=== PATIENT | female | born 1960 | race Caucasian/White ===

== ENCOUNTER 2018-03-23 13:20 | Outpatient (CLI) | payer OTHER ==
--- NOTE | 2018-03-23 14:04 | XRAY Report ---
Reason: COUGH,UNSPECIFIED ASTHMA,UNCOMP Procedure Date: 03/23/2018 Accession Number: [id number] / [id number] Procedure: XR - Chest 2 View X-Ray CPT Code: 73674 FULL RESULT: EXAM: CHEST RADIOGRAPHY EXAM DATE: 03/23/2018 01:30 PM. CLINICAL HISTORY: Cough, unspecified asthma, uncomplicated. COMPARISON: None. TECHNIQUE: 2 views. FINDINGS: Lungs/Pleura: No focal opacities evident. No pleural effusion. No pneumothorax. Normal volumes. Mediastinum: Heart and mediastinal contours are unremarkable. Other: None. IMPRESSION: Normal 2-view chest radiography. RADIA
== END 2018-03-23 13:21 | disposition home or self-care (01) ==
LOC: DI 13:20
PROVIDERS: ATTEND Internal Medicine
DX: R05 Cough (principal); J45.909 Unspecified asthma, uncomplicated; H69.80 Other specified disorders of Eustachian tube, unspecified ear
CPT/HCPCS: 71046

== ENCOUNTER 2020-08-28 09:00 | Outpatient (CLI) | payer OTHER ==
--- NOTE | 2020-08-28 10:15 | XRAY Report ---
PROCEDURE: Shoulder 3 View RT INDICATIONS: PAIN IN R SHLDR TECHNIQUE: 3 views of the shoulder were acquired. COMPARISON: None. FINDINGS: Bones: No fractures or dislocations. Mild undersurface spurring at the acromioclavicular joint. No suspicious bony lesions. Visualized ribs appear intact. Soft tissues: No suspicious soft tissue calcifications. IMPRESSION: Mild undersurface spurring at the acromioclavicular joint. Otherwise normal shoulder. Reviewed by: Shannan Rosario MD on 08/28/2020 9:14 AM ALEJANDRA Approved by: Shannan Rosario MD on 08/28/2020 9:14 AM ALEJANDRA Station ID: [id number]
== END 2020-08-28 09:01 | disposition home or self-care (01) ==
LOC: DI.S 09:00
PROVIDERS: ATTEND Nurse Practitioner Family
DX: M25.511 Pain in right shoulder (principal); M75.91 Shoulder lesion, unspecified, right shoulder

== ENCOUNTER 2020-09-20 14:17 | Outpatient (CLI) | payer OTHER ==
--- NOTE | 2020-09-21 12:04 | Mammography Report ---
BILATERAL DIGITAL SCREENING MAMMOGRAM 3D/2D: 09/20/2020 CLINICAL: Routine screening. No prior exams were available for comparison. There are scattered fibroglandular elements in both br easts. There are benign post operative findings in both breasts. No significant masses, calcifications, or other findings are seen in either breast. IMPRESSION: BENIGN There is no mammographic evidence of malignancy. A 1 year screening mammogram is recommended. This exam was interpreted at Station ID: [id number]. NOTE: For mammograms, a report in lay terms will be sent to the patient. Approximately 15% of breast malignancies will not be visualized mammographically. In the management of a palpable breast mass, a negative mammogram must not discourage biopsy of a clinically suspicious lesion. Electronically Signed By: Nino saldana/robert:09/20/2020 18:01:03 ACR BI-RADS Category 2: Benign Finding(s) 3342F PARENCHYMAL PATTERN: (A) - The breast(s) demonstrate(s) scattered fibroglandular densities. BI-RADS CATEGORY: (2) - 2 RECOMMENDATION: (ANNUAL) - Recommend routine annual screening mammography. [id number] 1 year screening LATERALITY: (B)
== END 2020-09-20 14:18 | disposition home or self-care (01) ==
LOC: DI 14:17
PROVIDERS: ATTEND Nurse Practitioner Family
DX: Z12.31 Encounter for screening mammogram for malignant neoplasm of breast (principal)

== ENCOUNTER 2020-09-20 14:17 | Outpatient (CLI) | payer OTHER ==
--- NOTE | 2020-09-20 16:37 | DEXA Report ---
PROCEDURE: Dexa Spine and/or Hip INDICATIONS: POST MENOPAUSAL TECHNIQUE: Dual energy x-ray absorptiometry (DXA) was performed on a [employer] System. Regions measur ed are the AP Spine, femoral neck, and if needed forearm. COMPARISON: None. FINDINGS: Lumbar Spine: Bone Mineral Density 1.080 g/cm/cm,T score -0.8, normal Left Hip: Bone Mineral Density 0.726 g/cm/cm,T score -2.2, osteopenia Left Femoral Neck: Bone Mineral Density 0.735 g/cm/cm, T score 2.2, osteopenia (T score greater or equal to -1.0: NORMAL) (T score from -1.1 to -2.4: OSTEOPENIA) (T score less than or equal to -2.5 to: OSTEOPOROSIS) Impression: Normal bone mineral density of the lumbosacral spine overall but there is osteopenia at t he left hip and left femoral neck. Patients with diagnosis of osteoporosis or osteopenia should have regular bone mineral density assess ment. For those eligible for Medicare, routine testing is allowed once every 2 years. Testing frequ ency can be increased for patients who have rapidly progressing disease or for those who are receivin g medical therapy to restore bone mass. Reviewed by: Malik Smyth MD on 09/20/2020 4:35 PM PDT Approved by: Malik Smyth MD on 09/20/2020 4:35 PM PDT Station ID: [id number]
== END 2020-09-20 14:18 | disposition home or self-care (01) ==
LOC: DI 14:17
PROVIDERS: ATTEND Nurse Practitioner Family
DX: M85.89 Other specified disorders of bone density and structure, multiple sites (principal)